=== PATIENT | female | born 1975 | race Caucasian/White ===

== ENCOUNTER 2019-07-14 08:51 | Emergency (ER) | payer OTHER, SELFPAY ==
--- NOTE | 2019-07-14 08:59 | ED.ABDPAIN ---
HPI - Abdominal Pain General Chief Complaint: Abdominal Pain Stated Complaint: severe abd pain Time Seen by Provider: 07/14/19 08:59 Source: patient Mode of arrival: Family Vehicle Limitations: no limitations History of Present Illness HPI narrative: Patient is a 44-year-old female who presents with right sided abdominal pain. It does start slightly from her flank and radiates down to her lower abdomen. It started suddenly this morning. It's constant in nature as she feels a little nauseous no vomiting. She has never had anything like this before. Yesterday she was doing well last evening she even had some alcohol to drink. She denies any fever chills or hematuria. MD complaint: abdominal pain Onset (ago): hour(s) Pain Consistency: constant Location: RLQ and R flank Quality: cramping Related Data Previous Rx's Medication Instructions Recorded hydrocodone-acetaminophen [[place]] 1 tab PO Q6H PRN #7 tab 07/14/19 ondansetron 4 mg PO Q8H PRN #10 tab 07/14/19 Allergies Allergy/AdvReac Type Severity Reaction Status Date / Time No Known Drug Allergies Allergy Verified 07/14/19 09:01 Review of Systems Review of Systems Narrative: GENERAL: Denies chills, fatigue, malaise, fever, sweats, travel HEENT: Denies sinus pain, ear pain, sore throat, difficulty swallowing, neck pain RESPIRATORY: Denies dyspnea, cough, wheezing, hemoptysis, sputum. CARDIOVASCULAR: Denies chest pain, palpitations, orthopnea, edema GASTROINTESTINAL: See HPI : Denies dysuria, frequency, incontinence, hematuria, urinary retention, flank pain. MUSCULOSKELETAL: Denies weakness, joint pain, or bony pain SKIN: No rash, no erythema, no pruritus NEUROLOGIC: Denies weakness, dizziness, headache, numbness, change in speech, confusion PSYCHIATRIC: No concerning psychosocial issues. 12 point review of systems is negative except for those stated above and HPI Patient History Medical History Patient denies significant medical history (Acute) Social History Smoking Status: Never smoker alcohol intake frequency: 0-2 drinks per day Alcohol type: wine Exam Initial Vital Signs Initial Vital Signs: Vital Signs Temperature 97.2 F L 07/14/19 09:01 Pulse Rate 75 07/14/19 09:01 Respiratory Rate 16 07/14/19 09:01 Blood Pressure 150/75 H 07/14/19 09:01 Pulse Oximetry 100 07/14/19 09:01 GENERAL: Well-appearing, well-nourished and in no acute distress. HEENT: Head atraumatic,EOMI, pupils reactive, face symmetric, moist mucous membranes CARDIOVASCULAR: Regular rate and rhythm without murmurs, rubs or gallops. RESPIRATORY: Breath sounds equal bilaterally, no wheezes rales or rhonchi. ABDOMEN: Soft, minimal right lower quadrant pain no guarding no rebound negative Siddiqui sign no upper quadrant pain. : No CVA tenderness EXTREMITIES: Normal range of motion, no clubbing or edema. Neurovascularly intact NEUROLOGICAL: Alert and oriented x4.Normal gait and speech. SKIN: Warm, dry, no laceration, no petechiae, no rashes or lesions. Course Orders Ordered: ED Orders 07/14/19 09:12 CT kidney ureter bladder (KUB) Stat 07/14/19 09:53 Complete Blood Count AUTO DIFF Stat Comprehensive Metabolic Panel Stat Lipase Stat Discontinued Medications Ketorolac Tromethamine (Toradol) 30 mg IV NOW ONE Stop: 07/14/19 09:13 Last Admin: 07/14/19 09:54 Dose: 30 mg Documented by: SHAINA Vital Signs Vital signs: Vital Signs - 8 hr 07/14/19 09:01 07/14/19 10:30 Temperature 97.2 F L Pulse Rate 75 76 Respiratory Rate 16 16 Blood Pressure 150/75 H Blood Pressure [Left Arm] 111/64 Pulse Oximetry 100 100 MDM - Abdominal Pain Lab Data Attestation: I reviewed the patient's lab results. Result diagrams: 07/14/19 09:53 07/14/19 09:53 Labs: Lab Results 07/14/19 07/14/19 Range/Units 09:53 09:53 WBC 8.9 (4.5-11.0) X10^3/uL RBC 4.51 (4.0-5.2) X10^6/uL Hgb 14.2 (12.0-16.0) g/dL Hct 41.4 (36-46) % MCV 92.0 (80-100) fL MCH 31.5 (26-34) PG MCHC 34.3 (30-36) % RDW 12.2 (11.6-14.8) % Plt Count 239 (150-400) X10^3/uL Neut % (Auto) 80.5 H (50-75) % Lymph % (Auto) 12.9 L (25-40) % Roane % (Auto) 6.2 (3-14) % Eos % (Auto) 0.1 L (2-4) % Baso % (Auto) 0.3 (0-2) % Neut # (Auto) 7200 H (1415-5076) /uL Lymph # (Auto) 1100 (3886-6403) /uL Roane # (Auto) 600 (0-900) /uL Eos # (Auto) 0 (0-450) /uL Baso # (Auto) 0 (0-100) /uL Sodium 137 (137-145) mmol/L Potassium 4.2 (3.4-5.1) mmol/L Chloride 103 (98-107) mmol/L Carbon Dioxide 25 (22-32) mmol/L BUN 12 (7-17) mg/dL Creatinine 1.10 H (0.52-1.04) mg/dL Estimated GFR 53.5 L (>60) mL/min BUN/Creatinine Ratio 10.9 (6-22) Glucose 121 H (70-100) mg/dL Calcium 8.8 (8.4-10.2) mg/dL Total Bilirubin 0.5 (0.2-1.3) mg/dL AST 32 (14-36) IU/L ALT 19 (<35) IU/L Alkaline Phosphatase 66 (38-126) U/L Total Protein 7.1 (6.3-8.2) g/dL Albumin 4.1 (3.5-5.0) g/dL Globulin 3.0 (1.7-4.1) g/dL Albumin/Globulin Ratio 1.4 (1.0-2.8) Lipase 84 (23-300) U/L Point of care testing: Urine Dip Bedside Urine Glucose Negative Bedside Urine Bilirubin + 1 Bedside Urine Ketone + 15 Urine Specific Cochrane 1.030 Bedside Urine Occult Blood - Negative Bedside Urine pH 6.0 Bedside Urine Protein + 30 Bedside Urine Urobilinogen +/- 1mg Bedside Urine Nitrite - Negative Bedside Urine Leukocytes - Negative Esterase Imaging Data CT scan - abdomen: Radiologist's impression: PROCEDURE: CT KIDNEY URETER BLADDER (KUB) INDICATIONS: right flank pain TECHNIQUE: Noncontrast 5 mm thick sections acquired from the diaphragms to the symphysis. 5 mm thick coronal and sagittal reformats were then performed. For radiation dose reduction, the following was used: automated exposure control, adjustment of mA and/or kV according to patient size. COMPARISON: None. FINDINGS: Image quality: Excellent. Lung bases: Lung bases are clear. Heart size is normal. Urinary system: Both kidneys are normal in size. A 2 mm diameter nonobstructing calculus is present within the left renal pelvis. No hydronephrosis or perinephric fat stranding; however there is trace pelviectasis of the right kidney with mild right hydroureter and periureteral fat stranding. A 2 mm calculus is present at the right ureteropelvic junction (series 2, image 76). No left ureterolithiasis or hydroureter. Bladder wall thickness is normal; no calcified bladder stones. Other solid organs: Liver is normal in size. Subcentimeter low density lesions are visualized within the liver suggesting the presence of simple hepatic cysts, which are incompletely characterized. Gallbladder is unremarkable. Pancreas is normal in contours. Spleen is normal in size. No adrenal nodules. Peritoneum and bowel: Unenhanced bowel loops demonstrate normal wall thickness and caliber. The appendix is thin walled and gas filled. There are scattered sigmoid diverticula. No evidence for diverticulitis. No free fluid or air. Nodes and vessels: No retroperitoneal or mesenteric adenopathy by size criteria. Aorta and inferior vena cava are normal in caliber. Abdominal wall: No ventral hernias. Pelvis: No free pelvic fluid. No inguinal hernias or adenopathy. Bones: No suspicious bony lesions. No vertebral body compression fractures. IMPRESSION: 1. Distal right ureteral calculus with mild hydroureter and pelviectasis. 2. Nonobstructing left nephrolithiasis. 3. No other acute intra-abdominal findings. Normal appendix. Diverticulosis. No acute diverticulitis. These findings were discussed with Dr. Barlow at 8:51 AM [place] time on 07/14/19. Dictated by: Janae Mortensen M.D. on 07/14/2019 at 8:47 MDM Narrative Medical decision making narrative: The pain is significantly improved after Toradol. She has a small 2 mm kidney stone noted on the right. No sign of infection. Discharge Plan Departure Patient Disposition: Home Clinical Impression: Kidney stones Discharge Date/Time: 07/14/19 10:43 Activity Restrictions/Additional Instructions: You been diagnosed with a kidney stone I anticipate you pass the stone within the next 24 hours it is approximately 2 mm which is considered small *Increase fluid intake You may require urology consultation please discuss this with your primary provider Please follow-up with your primary care provider in the next 2-3 days Strain urine, try to catch stone -If you should have fever, or pain is uncontrolled with medication at home or any other concerning symptoms return to ER for further evaluation MEDICATIONS Take Motrin 800 mg every 8 hours as needed for pain--Next dose at 5pm Take [place] every 6 hours if needed for severe pain Take Zofran every 4-6 hours if needed for nausea CONTROLLED SUBSTANCE DISCHARGE (Narcotoic/benzodiazepine) 1. You have been prescribed narcotic medications, it does have acetaminophen/Tylenol/paracetamol in it so do not take extra Tylenol or Tylenol containing products 2. Please understand that we cannot provide further refills of narcotics, benzodiazepines or controlled substances through the ED and her pain management will need to be through your provider. 3. While on these medications you cannot drive or operate heavy machinery. 4. You cannot sign legal documents or perform any duties such as this. 5. As long as you're taking opiate pain medications he should also be taking a stool softener such as Colace, Dulcolax, MiraLAX or prune juice, to help avoid constipation. Prescriptions: New hydrocodone-acetaminophen [[place]] 5-325 mg tablet 1 tab PO Q6H PRN (Reason: pain) Qty: 7 RF: 0 ondansetron 4 mg tablet,disintegrating 4 mg PO Q8H PRN (Reason: nausea and vomiting) Qty: 10 RF: 0
[2019-07-14 09:01] VITALS: BP 150/75; PULSE 75; RESP 16; TEMP 36.2; O2SAT 100; BMI 26.6
--- NOTE | 2019-07-14 09:12 | DI.CT.S_ITS ---
PROCEDURE: CT KIDNEY URETER BLADDER (KUB) INDICATIONS: right flank pain TECHNIQUE: Noncontrast 5 mm thick sections acquired from the diaphragms to the symphysis. 5 mm thick coronal and sagittal reformats were then performed. For radiation dose reduction, the following was used: automated exposure control, adjustment of mA and/or kV according to patient size. COMPARISON: None. FINDINGS: Image quality: Excellent. Lung bases: Lung bases are clear. Heart size is normal. Urinary system: Both kidneys are normal in size. A 2 mm diameter nonobstructing calculus is present within the left renal pelvis. No hydronephrosis or perinephric fat stranding; however there is trace pelviectasis of the right kidney with mild right hydroureter and periureteral fat stranding. A 2 mm calculus is present at the right ureteropelvic junction (series 2, image 76). No left ureterolithiasis or hydroureter. Bladder wall thickness is normal; no calcified bladder stones. Other solid organs: Liver is normal in size. Subcentimeter low density lesions are visualized within the liver suggesting the presence of simple hepatic cysts, which are incompletely characterized. Gallbladder is unremarkable. Pancreas is normal in contours. Spleen is normal in size. No adrenal nodules. Peritoneum and bowel: Unenhanced bowel loops demonstrate normal wall thickness and caliber. The appendix is thin walled and gas filled. There are scattered sigmoid diverticula. No evidence for diverticulitis. No free fluid or air. Nodes and vessels: No retroperitoneal or mesenteric adenopathy by size criteria. Aorta and inferior vena cava are normal in caliber. Abdominal wall: No ventral hernias. Pelvis: No free pelvic fluid. No inguinal hernias or adenopathy. Bones: No suspicious bony lesions. No vertebral body compression fractures. IMPRESSION: 1. Distal right ureteral calculus with mild hydroureter and pelviectasis. 2. Nonobstructing left nephrolithiasis. 3. No other acute intra-abdominal findings. Normal appendix. Diverticulosis. No acute diverticulitis. These findings were discussed with Dr. Barlow at 8:51 AM [place] time on 07/14/19. Dictated by: Janae Mortensen M.D. on 07/14/2019 at 8:47 Approved by: Janae Mortensen M.D. on 07/14/2019 at 8:52
[2019-07-14] MEDS: KETOROLAC 60 MG/2 ML VIAL 30 MG IV (09:54)
[2019-07-14 09:58] LABS: Add Manual Diff / Slide Review NO; Basophils Absolute Auto 0 /uL (0-100); Basophils Percent Auto 0.3 % (0-2); Eosinophils Absolute Auto 0 /uL (0-450); Eosinophils Percent Auto 0.1 % (2-4); Hematocrit 41.4 % (36-46); Hemoglobin 14.2 g/dL (12.0-16.0); Lymphocytes Absolute Auto 1100 /uL (1100-4500); Lymphocytes Percent Auto 12.9 % (25-40); Mean Corpuscular HGB Conc 34.3 % (30-36); Mean Corpuscular Hemoglobin 31.5 PG (26-34); Monocytes Absolute Auto 600 /uL (0-900); Monocytes Percent Auto 6.2 % (3-14); Neutrophils Absolute Auto 7200 /uL (1500-7000); Neutrophils Percent Auto 80.5 % (50-75); Platelet Count 239 X10^3/uL (150-400); Red Blood Cell Count 4.51 X10^6/uL (4.0-5.2); Red Cell Distribution Width 12.2 % (11.6-14.8); White Blood Cell Count 8.9 X10^3/uL (4.5-11.0)
[2019-07-14 10:13] LABS: Alanine Aminotransferase 19 IU/L (<35); Albumin 4.1 g/dL (3.5-5.0); Albumin Globulin Ratio 1.4 (1.0-2.8); Alkaline Phosphatase 66 U/L (38-126); Aspartate Aminotransferase 32 IU/L (14-36); BUN Creatinine Ratio 10.9 (6-22); Bilirubin Total 0.5 mg/dL (0.2-1.3); Blood Urea Nitrogen 12 mg/dL (7-17); Calcium 8.8 mg/dL (8.4-10.2); Carbon Dioxide 25 mmol/L (22-32); Chloride 103 mmol/L (98-107); Estimated Glomerular Filt Rate 53.5 mL/min (>60); Glucose 121 mg/dL (70-100); HEMOLYSIS < 15 (0-50); Lipase 84 U/L (23-300); Potassium 4.2 mmol/L (3.4-5.1); Sodium 137 mmol/L (137-145); Total Protein 7.1 g/dL (6.3-8.2)
[2019-07-14 10:30] VITALS: BP 111/64; PULSE 76; RESP 16; O2SAT 100
== END 2019-07-14 10:43 | disposition home or self-care (01) ==
PROVIDERS: Emergency Provider Emergency Medicine
DX: N20.0 Calculus of kidney (principal)
CPT/HCPCS: 36415; 74176; 80053; 81003; 83690; 85025; 96374; 99284; J1885